=== PATIENT | female | born 1935 | race Caucasian/White ===

== ENCOUNTER → 2019-02-05 | Outpatient (CLI) | payer MEDICARE ==
--- NOTE | 2019-02-05 18:50 | ECHOF ---
Referral Reason:Cardia Murmur R07.9 MEASUREMENTS -------- HEIGHT: 142.2 cm WEIGHT: 56.2 kg BP: RVIDd: 2.3 cm (< 3.3) IVSd: 1.3 cm (0.6 - 1.1) LVIDd: 3.9 cm (3.9 - 5.3) LVPWd: 1.2 cm (0.6 - 1.1) IVSs: 1.4 cm LVIDs: 3.0 cm LVPWs: 1.3 cm LA Diam: 4.4 cm (2.7 - 3.8) LAESV Index (A-L): 39.58 ml/m Ao Diam: 2.5 cm (2.0 - 3.7) AV Cusp: 0.7 cm (1.5 - 2.6) MV EXCURSION: 17.202 mm (> 18.000) MV EF SLOPE: 41 mm/s (70 - 150) EPSS: 0.1 cm MV E Julio: 0.90 m/s MV DecT: 392 ms MV A Julio: 1.22 m/s MV E/A Ratio: 0.74 AV maxP.79 mmHg AV meanP.70 mmHg RAP: 5.00 mmHg RVSP: 38.41 mmHg FINDINGS -------- Sinus rhythm. This was a technically adequate study. The left ventricular size is normal. There is mild concentric left ventricular hypertrophy. Overa ll left ventricular systolic function is normal with, an EF between 55 - 60 %. Increased Lap Grade II Diastolic Dysfunction. The right ventricle is normal in size. LA is severely dilated >40 ml/m2 The right atrial size is normal. There is severe aortic stenosis present. Peak/mean gradient across the Aortic Valve is 79.79mmHg / 46.70mmHg. Mild mitral annular calcification present. There is trace to mild mitral regurgitation. Mild tricuspid regurgitation present. Right ventricular systolic pressure is normal at < 35 mmHg. There is no evidence of pulmonary hypertension. The pulmonic valve was not well visualized. There is no pulmonic regurgitation present. The aortic root size is normal. There is no pericardial effusion. CONCLUSIONS -------- 1. Sinus rhythm. 2. This was a technically adequate study. 3. The left ventricular size is normal. 4. There is mild concentric left ventricular hypertrophy. 5. Overall left ventricular systolic function is normal with, an EF between 55 - 60 %. 6. LA is severely dilated >40 ml/m2 7. There is severe aortic stenosis present. 8. Peak/mean gradient across the Aortic Valve is 79.79mmHg / 46.70mmHg. 9. Mild mitral annular calcification present. 10. There is trace to mild mitral regurgitation. 11. Mild tricuspid regurgitation present. 12. Right ventricular systolic pressure is normal at < 35 mmHg. 13. There is no pulmonic regurgitation present. 14. The aortic root size is normal. 15. There is no pericardial effusion. STATISTICAL METHODS TEACHER: Mirella Montez RDCS
== END | disposition home or self-care (01) ==
LOC: RADECHMAIN 15:48
PROVIDERS: ATTEND Family Medicine
DX: I08.3 Combined rheumatic disorders of mitral, aortic and tricuspid valves (principal)
CPT/HCPCS: 93306

== ENCOUNTER 2021-04-30 12:43 | Inpatient (IN) | payer MEDICARE ==
[2021-04-30] MEDS ORDERED: SODIUM CHLORIDE 0.9% 500 ML 500 ML IV ONE (12:49)
--- NOTE | 2021-04-30 13:34 | ED ---
General Adult HPI - General Chief complaint: Altered Mental Status Stated complaint: increased confusion Time Seen by Provider: 04/30/21 12:43 Source: patient, RN notes reviewed, old records reviewed Mode of arrival: EMS Limitations: altered mental status - History of Present Illness Initial comments: This is an 85-year-old female presents emergency department because of altered mental status. According to family states she was altered but today she was even more altered. Patient did stumble yesterday and twisted her ankle she also complains of right ankle pain. Family states his been no recent fever chills or cough is been no complaints of chest pain. Patient is not complaining of any abdominal pain there's been no nausea vomiting. Currently when I speak to the patient though she is somewhat confused she is not complaining of anything and does not know why she is here. Patient did not hit her head or neck when she fell yesterday. - Related Data Home Medications Medication Instructions Recorded Confirmed Acetaminophen [Tylenol] 650 mg PO Q4H PRN 04/30/21 04/30/21 Aspirin EC [Ecotrin Low Dose] 81 mg PO DAILY 04/30/21 04/30/21 Calcium Carbonate 500 mg PO DAILY 04/30/21 04/30/21 Cyanocobalamin (Vitamin B-12) 2,500 mcg PO DAILY 04/30/21 04/30/21 [Vitamin B-12] Furosemide [Lasix] 20 mg PO DAILY 04/30/21 04/30/21 Iron 28mg 28 mg PO DAILY 04/30/21 04/30/21 Metoprolol Tartrate [Lopressor] 12.5 mg PO BID 04/30/21 04/30/21 Potassium Chloride [Klor-Con 20] 20 meq PO W/LUNCH 04/30/21 04/30/21 Vit C/E/Zn/Coppr/Lutein/Zeaxan 1 cap PO BID 04/30/21 04/30/21 [Preservision Areds 2 Softgel] lisinopriL 10 mg PO DAILY 04/30/21 04/30/21 Allergies Allergy/AdvReac Type Severity Reaction Status Date / Time Penicillins Allergy Itching Verified 04/30/21 14:24 All Over Sulfa (Sulfonamide Allergy Itching Verified 04/30/21 14:24 Antibiotics) All Over Review of Systems ROS Statement: Those systems with pertinent positive or pertinent negative responses have been documented in the HPI. ROS Other: All systems not noted in ROS Statement are negative. Past Medical History Past Medical History: Unable to Obtain History of Any Multi-Drug Resistant Organisms: None Reported Past Surgical History: Unable to Obtain Past Psychological History: No Psychological Hx Reported Smoking Status: Never smoker General Exam - General Exam Comments Initial Comments: GENERAL: Patient is well-developed and well-nourished. Patient is nontoxic and well- hydrated and is in no acute distress. ENT: Neck is soft and supple. No significant lymphadenopathy is noted. Oropharynx is clear. Moist mucous membranes. Neck has full range of motion without eliciting any pain. EYES: The sclera were anicteric and conjunctiva were pink and moist. Extraocular movements were intact and pupils were equal round and reactive to light. Eyelids were unremarkable. PULMONARY: Unlabored respirations. Good breath sounds bilaterally. No audible rales rhonchi or wheezing was noted. CARDIOVASCULAR: There is a regular rate and rhythm without any murmurs gallops or rubs. ABDOMEN: Soft and nontender with normal bowel sounds. SKIN: Skin is clear with no lesions or rashes and otherwise unremarkable. NEUROLOGIC: Patient is alert and oriented 2. Cranial nerves II through XII are grossly intact. Motor and sensory are also intact. Normal speech, volume and content. Symmetrical smile. MUSCULOSKELETAL: Normal extremities with adequate strength and full range of motion. No lower extremity swelling or edema. No calf tenderness. LYMPHATICS: No significant lymphadenopathy is noted PSYCHIATRIC: Difficult to assess patient is altered. Limitations: altered mental status Course Vital Signs 04/30/21 12:45 Temperature 98.0 F Pulse Rate 94 Respiratory 18 Rate Blood Pressure 135/69 O2 Sat by Pulse 96 Oximetry Procedures - Orthopedic Splinting/Casting Injury #1 Side: right Lower Extremity Injury Location: short leg Lower Extremity Immobilizer: posterior splint Medical Decision Making - Medical Decision Making X-ray of the foot and ankle show no acute fracture however the patient is unable to bear any weight so I will a splint on the patient have orthoses the patient. CT of the brain shows no acute abnormality. Chest x-ray shows no acute abnormality. - Lab Data Result diagrams: 04/30/21 13:34 04/30/21 13:34 Lab Results 04/30/21 04/30/21 04/30/21 Range/Units 13:34 13:34 13:34 WBC 18.1 H (3.8-10.6) k/uL RBC 3.76 L (3.80-5.40) m/uL Hgb 11.2 L (11.4-16.0) gm/dL Hct 34.6 (34.0-46.0) % MCV 91.9 (80.0-100.0) fL MCH 29.8 (25.0-35.0) pg MCHC 32.4 (31.0-37.0) g/dL RDW 14.3 (11.5-15.5) % Plt Count 283 (150-450) k/uL MPV 8.2 Neutrophils % 88 % Lymphocytes % 4 % Monocytes % 7 % Eosinophils % 0 % Basophils % 0 % Neutrophils # 15.9 H (1.3-7.7) k/uL Lymphocytes # 0.7 L (1.0-4.8) k/uL Monocytes # 1.2 H (0-1.0) k/uL Eosinophils # 0.0 (0-0.7) k/uL Basophils # 0.0 (0-0.2) k/uL PT 9.8 (9.0-12.0) sec INR 0.9 (<1.2) APTT 23.2 (22.0-30.0) sec Sodium 140 (137-145) mmol/L Potassium 4.3 (3.5-5.1) mmol/L Chloride 108 H (98-107) mmol/L Carbon Dioxide 26 (22-30) mmol/L Anion Gap 6 mmol/L BUN 47 H (7-17) mg/dL Creatinine 1.09 H (0.52-1.04) mg/dL Est GFR (CKD-EPI)AfAm 54 (>60 ml/min/1.73 sqM) Est GFR (CKD-EPI)NonAf 47 (>60 ml/min/1.73 sqM) Glucose 122 H (74-99) mg/dL Calcium 9.5 (8.4-10.2) mg/dL Total Bilirubin 0.8 (0.2-1.3) mg/dL AST 105 H (14-36) U/L ALT 32 (4-34) U/L Alkaline Phosphatase 121 (38-126) U/L Troponin I (0.000-0.034) ng/mL Total Protein 7.0 (6.3-8.2) g/dL Albumin 4.1 (3.5-5.0) g/dL Urine Color Urine Appearance (Clear) Urine pH (5.0-8.0) Ur Specific Elmer (1.001-1.035) Urine Protein (Negative) Urine Glucose (UA) (Negative) Urine Ketones (Negative) Urine Blood (Negative) Urine Nitrite (Negative) Urine Bilirubin (Negative) Urine Urobilinogen (<2.0) mg/dL Ur Leukocyte Esterase (Negative) Urine RBC (0-5) /hpf Urine WBC (0-5) /hpf Ur Squamous Epith Cells (0-4) /hpf Urine Bacteria (None) /hpf Hyaline Casts (0-2) /lpf Urine Mucus (None) /hpf Urine Opiates Screen (NotDetected) Ur Oxycodone Screen (NotDetected) Urine Methadone Screen (NotDetected) Ur Propoxyphene Screen (NotDetected) Ur Barbiturates Screen (NotDetected) U Tricyclic Antidepress (NotDetected) Ur Phencyclidine Scrn (NotDetected) Ur Amphetamines Screen (NotDetected) U Methamphetamines Scrn (NotDetected) U Benzodiazepines Scrn (NotDetected) Urine Cocaine Screen (NotDetected) U Marijuana (THC) Screen (NotDetected) 04/30/21 04/30/21 Range/Units 13:34 16:37 WBC (3.8-10.6) k/uL RBC (3.80-5.40) m/uL Hgb (11.4-16.0) gm/dL Hct (34.0-46.0) % MCV (80.0-100.0) fL MCH (25.0-35.0) pg MCHC (31.0-37.0) g/dL RDW (11.5-15.5) % Plt Count (150-450) k/uL MPV Neutrophils % % Lymphocytes % % Monocytes % % Eosinophils % % Basophils % % Neutrophils # (1.3-7.7) k/uL Lymphocytes # (1.0-4.8) k/uL Monocytes # (0-1.0) k/uL Eosinophils # (0-0.7) k/uL Basophils # (0-0.2) k/uL PT (9.0-12.0) sec INR (<1.2) APTT (22.0-30.0) sec Sodium (137-145) mmol/L Potassium (3.5-5.1) mmol/L Chloride (98-107) mmol/L Carbon Dioxide (22-30) mmol/L Anion Gap mmol/L BUN (7-17) mg/dL Creatinine (0.52-1.04) mg/dL Est GFR (CKD-EPI)AfAm (>60 ml/min/1.73 sqM) Est GFR (CKD-EPI)NonAf (>60 ml/min/1.73 sqM) Glucose (74-99) mg/dL Calcium (8.4-10.2) mg/dL Total Bilirubin (0.2-1.3) mg/dL AST (14-36) U/L ALT (4-34) U/L Alkaline Phosphatase (38-126) U/L Troponin I 0.013 (0.000-0.034) ng/mL Total Protein (6.3-8.2) g/dL Albumin (3.5-5.0) g/dL Urine Color Yellow Urine Appearance Cloudy H (Clear) Urine pH 5.0 (5.0-8.0) Ur Specific Elmer 1.018 (1.001-1.035) Urine Protein Negative (Negative) Urine Glucose (UA) Negative (Negative) Urine Ketones Negative (Negative) Urine Blood Negative (Negative) Urine Nitrite Negative (Negative) Urine Bilirubin Negative (Negative) Urine Urobilinogen <2.0 (<2.0) mg/dL Ur Leukocyte Esterase Small H (Negative) Urine RBC <1 (0-5) /hpf Urine WBC 2 (0-5) /hpf Ur Squamous Epith Cells 2 (0-4) /hpf Urine Bacteria Many H (None) /hpf Hyaline Casts 4 H (0-2) /lpf Urine Mucus Rare H (None) /hpf Urine Opiates Screen Not Detected (NotDetected) Ur Oxycodone Screen Not Detected (NotDetected) Urine Methadone Screen Not Detected (NotDetected) Ur Propoxyphene Screen Not Detected (NotDetected) Ur Barbiturates Screen Not Detected (NotDetected) U Tricyclic Antidepress Not Detected (NotDetected) Ur Phencyclidine Scrn Not Detected (NotDetected) Ur Amphetamines Screen Not Detected (NotDetected) U Methamphetamines Scrn Not Detected (NotDetected) U Benzodiazepines Scrn Not Detected (NotDetected) Urine Cocaine Screen Not Detected (NotDetected) U Marijuana (THC) Screen Not Detected (NotDetected) Disposition Clinical Impression: Ankle sprain, Altered mental status, Urinary tract infection Referrals: Brian Rizzo DO [Primary Care Provider] - 1-2 days Time of Disposition: 17:33
[2021-04-30 14:05] LABS: Basophils % (A) 0 %; Eosinophils % (A) 0 %; HCT 34.6 % (34.0-46.0); HGB 11.2 gm/dL (11.4-16.0); Lymphocytes # (A) 0.7 k/uL (1.0-4.8); Lymphocytes % (A) 4 %; MCH 29.8 pg (25.0-35.0); MCHC 32.4 g/dL (31.0-37.0); MCV 91.9 fL (80.0-100.0); Mean Platelet Volume 8.2; Monocytes # (A) 1.2 k/uL (0-1.0); Monocytes % (A) 7 %; Neutrophils # (A) 15.9 k/uL (1.3-7.7); Neutrophils % (A) 88 %; Platelet Count 283 k/uL (150-450); RBC 3.76 m/uL (3.80-5.40); RDW 14.3 % (11.5-15.5); WBC 18.1 k/uL (3.8-10.6)
[2021-04-30 14:20] LABS: INR 0.9 (<1.2); Partial Thromboplastin Time 23.2 sec (22.0-30.0); Prothrombin Time 9.8 sec (9.0-12.0)
[2021-04-30 14:23] LABS: Albumin 4.1 g/dL (3.5-5.0); Calcium 9.5 mg/dL (8.4-10.2); Potassium 4.3 mmol/L (3.5-5.1); Total Bilirubin 0.8 mg/dL (0.2-1.3)
--- NOTE | 2021-04-30 15:15 | XR ---
EXAMINATION TYPE: XR chest 2V DATE OF EXAM: 04/30/2021 COMPARISON: NONE HISTORY: Altered mental status TECHNIQUE: Frontal and lateral views of the chest are obtained. FINDINGS: There is no focal air space opacity, pleural effusion, or pneumothorax seen. The cardiac silhouette size is within normal limits. Patient is status post TAVR procedure. Aorta is dense. The osseous structures are intact arthropathy noted in the right shoulder. Suspect there is retrocardiac density, possible hiatal hernia, indeterminate. IMPRESSION: Possible hiatal hernia retrocardiac region, correlate with patient's prior CT. Otherwise no acute abnormality evident.
--- NOTE | 2021-04-30 15:17 | XR ---
Right ankle and right foot HISTORY: Trauma and pain 3 views the right ankle and 3 views the right foot Soft tissue swelling is noted. There are ossific densities present distal to the medial malleolus and distal fibula which are thought likely to be well-corticated, correlate for point tenderness. Alignm ent is maintained. Bone mineralization is reduced. There are dense vascular calcifications present. P lantar calcaneus spur is noted. There is an enthesophyte at the insertion of the Achilles tendon. The digits are flexed. Degenerative changes, hallux valgus deformity present first metatarsophalangea l joint. IMPRESSION: Soft tissue swelling. Low bone mineralization could limit evaluation. Additional findings above. No acute fracture or dislocation is evident as described, correlate for point tenderness.
--- NOTE | 2021-04-30 16:10 | CT ---
EXAMINATION TYPE: CT brain wo con DATE OF EXAM: 04/30/2021 COMPARISON: None HISTORY: 85-year-old female Increased confusion TECHNIQUE: Examination was done in axial plane without intravenous contrast. Coronal and sagittal r econstructions performed. CT DLP: 1052.4 mGycm Automated exposure control for dose reduction was used. 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 Mild hyperostos is frontalis interna. Moderate patchy white matter hypodensities in both cerebral hemispheres. Mild generalized supratentor ial volume loss. Diffuse motion artifact limiting evaluation. Allowing for these artifacts, no evidence of acute intracranial hemorrhage, acute ischemic changes, mass, mass-effect, or extra-axial fluid collection. There is no effacement of cerebral sulci or basa l subarachnoid cisterns. There is no hydrocephalus. There is no midline shift. Stevens-white matter d istinction is preserved. IMPRESSION: Diffuse motion artifacts. 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 Mild atrophy and moderate burden of chronic small vessel ischemic disease. No definite acute intracranial abnorma lity seen allowing for the motion artifacts.
[2021-04-30 16:59] LABS: Appearance,Urine Cloudy (Clear); Bacteria,Urine Many /hpf; Bilirubin,Urine Negative (Negative); Blood,Urine Negative (Negative); Color,Urine Yellow; Glucose,Urine (UA) Negative (Negative); Hyaline Casts,Urine 4 /lpf (0-2); Ketones,Urine Negative (Negative); Leukocyte Esterase,Urine Small (Negative); Mucus,Urine Rare /hpf; Nitrite,Urine Negative (Negative); Protein,Urine Negative (Negative); RBC,Urine <1 /hpf (0-5); Specific Gravity,Urine 1.018 (1.001-1.035); Squamous Epithelial Cell,Urine 2 /hpf (0-4); Urobilinogen,Urine <2.0 mg/dL (<2.0); WBC,Urine 2 /hpf (0-5)
[2021-04-30] MEDS ORDERED: cefTRIAXone IN SWFI 1,000 MG/10 ML SYRINGE IVP STA (17:05)
[2021-04-30 17:18] LABS: Amphetamine Screen,Urine Not Detected (NotDetected); Barbiturate Screen,Urine Not Detected (NotDetected); Benzodiazepines Screen,Urine Not Detected (NotDetected); Cocaine Screen,Urine Not Detected (NotDetected); Methadone Screen, Urine Not Detected (NotDetected); Opiate Screen,Urine Not Detected (NotDetected); Oxycodone Screen, Urine Not Detected (NotDetected); Phencyclidine Screen,Urine Not Detected (NotDetected); Tricyclic Antidepressant,Urine Not Detected (NotDetected); Urn Cannabinoid Scrn Not Detected (NotDetected)
[2021-04-30] MEDS ORDERED: SODIUM CHLORIDE 0.9% 1,000 ML IV ONE (17:36)
--- NOTE | 2021-04-30 18:07 | XR ---
EXAMINATION TYPE: XR tibia fibula RT DATE OF EXAM: 04/30/2021 COMPARISON: NONE HISTORY: Pain TECHNIQUE: 3 views FINDINGS: A single fracture nor dislocation. There is osteopenia. There are some vascular calcificati on. Knee joint and ankle joint appear intact. IMPRESSION: No acute abnormality of the right tibia and fibula. No displaced fracture seen. Charla ramos
--- NOTE | 2021-05-01 09:00 | P.CNOR ---
History of Present Illness - [facility] Consult date: 05/01/21 Consult reason: other (Right ankle pain) History of present illness: Patient is an 85-year-old female who was brought to [facility] yesterday with regards to increase in confusion/altered mental status. Patient was apparently brought in by family and most of the history was provided by them. Patient was complaining of right ankle pain once in the emergency room, x-rays were done. Orthopedic team was consulted with regards to the ankle discomfort. 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 Patient remains quite confused, she answers most my questions regarding the ankle pain adequately but is unable to provide a timeline of when an injury happened. I discussed with patient that I would reach up to the family regarding this. She denies any significant knee pain, hip pain on the right side. She denies any discomfort of the left lower extremity. She denies any pain in the bilateral upper extremities. It was noted in the ER note the patient might have twisted her ankle a few days prior. Patient has no other orthopedic complaints at this time. Review of Systems Constitutional: Reports as per [facility] Past Medical History Past Medical History: Unable to Obtain History of Any Multi-Drug Resistant Organisms: None Reported Past Surgical History: Unable to Obtain Past Psychological History: No Psychological Hx Reported Smoking Status: Never smoker Medications and Allergies Home Medications Medication Instructions Recorded Confirmed Type Acetaminophen [Tylenol] 650 mg PO Q4H PRN 04/30/21 04/30/21 History Aspirin EC [Ecotrin Low Dose] 81 mg PO DAILY 04/30/21 04/30/21 History Calcium Carbonate 500 mg PO DAILY 04/30/21 04/30/21 History Cyanocobalamin (Vitamin B-12) 2,500 mcg PO DAILY 04/30/21 04/30/21 History [Vitamin B-12] Furosemide [Lasix] 20 mg PO DAILY 04/30/21 04/30/21 History Iron 28mg 28 mg PO DAILY 04/30/21 04/30/21 History Metoprolol Tartrate [Lopressor] 12.5 mg PO BID 04/30/21 04/30/21 History Potassium Chloride [Klor-Con 20] 20 meq PO W/LUNCH 04/30/21 04/30/21 History Vit C/E/Zn/Coppr/Lutein/Zeaxan 1 cap PO BID 04/30/21 04/30/21 History [Preservision Areds 2 Softgel] lisinopriL 10 mg PO DAILY 04/30/21 04/30/21 History Allergies Allergy/AdvReac Type Severity Reaction Status Date / Time Penicillins Allergy Itching Verified 04/30/21 14:24 All Over Sulfa (Sulfonamide Allergy Itching Verified 04/30/21 14:24 Antibiotics) All Over Physical Examination Right lower extremity: No obvious skin lesions or sores are visualized throughout extremity. There is no areas of erythema present. There is obvious swelling along the lateral ankle and lateral malleolus. Patient demonstrates no tenderness with palpation of the upper thigh, knee, lower tibia/fibula. She is obvious tenderness over the lateral malleolus along those ankle ligament distributions. No tenderness with palpation along the medial malleolus. She is nontender throughout the hindfoot, midfoot and forefoot. Logroll maneuver reproduces no pain in the groin, passive motion of the knee including flexion and extension demonstrate no pain. Patient has had difficulty with plantar and dorsiflexion, this is reproduced discomfort. EHL and FHL are both intact and cause minimal discomfort Calf is soft, no tenderness with palpation Sensory exam light touch is intact throughout the extremity, dorsalis pedis pulses 2+ Results - Labs Labs: Abnormal Lab Results - Last 24 Hours (Table) 04/30/21 04/30/21 04/30/21 Range/Units 13:34 13:34 16:37 WBC 18.1 H (3.8-10.6) k/uL RBC 3.76 L (3.80-5.40) m/uL Hgb 11.2 L (11.4-16.0) gm/dL Neutrophils # 15.9 H (1.3-7.7) k/uL Lymphocytes # 0.7 L (1.0-4.8) k/uL Monocytes # 1.2 H (0-1.0) k/uL Chloride 108 H (98-107) mmol/L BUN 47 H (7-17) mg/dL Creatinine 1.09 H (0.52-1.04) mg/dL Glucose 122 H (74-99) mg/dL AST 105 H (14-36) U/L Urine Appearance Cloudy H (Clear) Ur Leukocyte Esterase Small H (Negative) Urine Bacteria Many H (None) /hpf Hyaline Casts 4 H (0-2) /lpf Urine Mucus Rare H (None) /hpf H & H 04/30/21 Range/Units 13:34 Hgb 11.2 L (11.4-16.0) gm/dL Hct 34.6 (34.0-46.0) % Coagulation 04/30/21 Range/Units 13:34 INR 0.9 (<1.2) Result Diagrams: 04/30/21 13:34 04/30/21 13:34 - Diagnostic results Ankle/Foot x-ray: report reviewed, image reviewed (AP and lateral views of the right tibia/fibula, ankle and foot were reviewed along with reports. No obvious fractures or dislocations are present. Osteopenia present throughout the right lower extremity.) Assessment and Plan Assessment: Right ankle pain Right lateral ankle sprain Multiple medical comorbidities Plan: I was able to discuss the case, including the physical exam findings and imaging studies my attending Dr. Fowler. No orthopedic surgical intervention recommended at this time. Posterior splint was removed today at bedside for exam of the ankle. I would recommend discontinue this at this time. A prescription was placed for a lace up ankle brace, this was on a written prescription and placed in the chart for case management to contact medical supply. Discussed with both the patient and nurse once patient is fitted with brace she may weight-bear as tolerated, recommend good supportive athletic shoe. We'll attempt to contact patient's family will keep him in her status Ice and elevate the lower extremely Pain control, [id number] Tylenol or anti-inflammatories Recommended PT/OT evaluation Recommend follow-up at [facility] in 2-3 weeks for recheck, please contact our service with any further questions Time with Patient: Less than 30
[2021-05-01] MEDS ORDERED: FUROSEMIDE 20 MG TAB PO SCH (09:54)
[2021-05-01] MEDS: METOPROLOL TARTRATE 12.5 MG TAB PO SCH ×2 (11:06→21:14)
[2021-05-01] MEDS ORDERED: SODIUM CHLORIDE 0.9% 1,000 ML IV SCH (11:15)
[2021-05-01] MEDS: POTASSIUM CHLORIDE ER 20 MEQ TAB.ER PO SCH (11:49)
[2021-05-01 12:04] LABS: Basophils % (A) 0 %; Eosinophils % (A) 0 %; HCT 30.9 % (34.0-46.0); HGB 10.4 gm/dL (11.4-16.0); Lymphocytes # (A) 0.7 k/uL (1.0-4.8); Lymphocytes % (A) 5 %; MCH 31.5 pg (25.0-35.0); MCHC 33.7 g/dL (31.0-37.0); MCV 93.6 fL (80.0-100.0); Mean Platelet Volume 8.3; Monocytes # (A) 0.8 k/uL (0-1.0); Monocytes % (A) 6 %; Neutrophils # (A) 11.4 k/uL (1.3-7.7); Neutrophils % (A) 87 %; Platelet Count 253 k/uL (150-450); RBC 3.31 m/uL (3.80-5.40); RDW 14.4 % (11.5-15.5); WBC 13.2 k/uL (3.8-10.6)
[2021-05-01 12:24] LABS: African American GFR (CKD) 66 (>60 ml/min/1.73 sqM); Anion Gap 6 mmol/L; Blood Urea Nitrogen 34 mg/dL (7-17); Calcium 8.7 mg/dL (8.4-10.2); Carbon Dioxide 24 mmol/L (22-30); Chloride 110 mmol/L (98-107); Glucose 99 mg/dL (74-99); Non-African American GFR(CKD) 57 (>60 ml/min/1.73 sqM); Potassium 4.2 mmol/L (3.5-5.1); Sodium 140 mmol/L (137-145)
[2021-05-01] MEDS ORDERED: QUEtiapine 25 MG TAB PO PRN (12:34)
[2021-05-01] MEDS ORDERED: ACETAMINOPHEN TAB 325 MG TAB PO PRN (12:39)
--- NOTE | 2021-05-01 12:39 | P.HPIM ---
History of Present Illness 85-year-old female was brought in by family members because of altered mental status. Patient has been falling for last few days, and yesterday patient was found at home by the daughter on the floor and was confused. The patient is found have leukocytosis no fever U Ms. mildly abnormal but no WBC in the urine does have some leukocyte esterase and bacteria. Patient was started on Rocephin and was subsequently admitted with concerns of urinary tract infection. Patient is now getting back to her usual self the patient received IV fluids patient is significantly dehydrated clinically as well as elevated creatinine of 1.09. Patient appears to have advanced dementia, sometimes cannot recognize her daughter. His daughter is at the bedside patient in the evenings does have episodes of hallucinations and also wanders around the house. She's had MRIs in the past as a part of workup for a dementia and the patient was told that she has significantly shrunken brain. REVIEW OF SYSTEMS: Unable to obtain most of the history was obtained from her daughter although patient denied any dysuria, increased urinary frequency or urgency PHYSICAL EXAMINATION: GENERAL: Patient was sleeping arousable and oriented 2 not in any acute distress. Well developed, well nourished. HEENT: Pupils are round and equally reacting to light. EOMI. No scleral icterus. No conjunctival pallor. Normocephalic, atraumatic. No pharyngeal erythema. No thyromegaly. CARDIOVASCULAR: S1 and S2 present. No murmurs, rubs, or gallops. PULMONARY: Chest is clear to auscultation, no wheezing or crackles. ABDOMEN: Soft, nontender, nondistended, normoactive bowel sounds. No palpable organomegaly. MUSCULOSKELETAL: No joint swelling or deformity. EXTREMITIES: No cyanosis, clubbing, or pedal edema. NEUROLOGICAL: Definitely bit confused but does have significant memory problems no other focal deficits were appreciated SKIN: No rashes. Assessment and plan -Altered mental status: Secondary to metabolic encephalopathy from dehydration patient will be continued on IV fluids was switched to half-normal saline because of hyperchloremia. -Possible asymptomatic bacteriuria will not require any antibiotics as dehydration explains her altered mental status I do not believe patient has UTI and urine analysis is not significant for UTI antibiotics will be discontinued at this time -Possible advanced dementia once her mental status improves and metabolic encephalopathy improves we'll obtain mini cognitive testing by speech therapy -Episodes of confusion and hallucinations secondary to advancing dementia patient will be started on as needed Seroquel and will be discharged on same -Right ankle sprain: Orthotic surgery evaluated the patient in the recommending a place DVT prophylaxis: Low-dose Lovenox Past Medical History Past Medical History: Eye Disorder, Hypertension, Memory Impairment Additional Past Medical History / Comment(s): 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 Past Anesthesia/Blood Transfusion Reactions: No Reported Reaction Smoking Status: Never smoker - Past Family History Father Family Medical History: CVA/TIA, Hypertension Mother Family Medical History: Dementia, Hypertension, Liver Disease, Vascular Disorder Additional Family Medical History / Comment(s): Hepatits from blood transfusion, abdominal aneurysm, gout, cholecystectomy Medications and Allergies Home Medications Medication Instructions Recorded Confirmed Type Acetaminophen [Tylenol] 650 mg PO Q4H PRN 04/30/21 04/30/21 History Aspirin EC [Ecotrin Low Dose] 81 mg PO DAILY 04/30/21 04/30/21 History Calcium Carbonate 500 mg PO DAILY 04/30/21 04/30/21 History Cyanocobalamin (Vitamin B-12) 2,500 mcg PO DAILY 04/30/21 04/30/21 History [Vitamin B-12] Furosemide [Lasix] 20 mg PO DAILY 04/30/21 04/30/21 History Iron 28mg 28 mg PO DAILY 04/30/21 04/30/21 History Metoprolol Tartrate [Lopressor] 12.5 mg PO BID 04/30/21 04/30/21 History Potassium Chloride [Klor-Con 20] 20 meq PO W/LUNCH 04/30/21 04/30/21 History Vit C/E/Zn/Coppr/Lutein/Zeaxan 1 cap PO BID 04/30/21 04/30/21 History [Preservision Areds 2 Softgel] lisinopriL 10 mg PO DAILY 04/30/21 04/30/21 History Allergies Allergy/AdvReac Type Severity Reaction Status Date / Time Penicillins Allergy Itching Verified 04/30/21 14:24 All Over Sulfa (Sulfonamide Allergy Itching Verified 04/30/21 14:24 Antibiotics) All Over Physical Exam Vitals: Vital Signs Temp Pulse Pulse Resp BP BP Pulse Ox 05/01/21 09:12 93 L 05/01/21 07:57 99.5 F 108 H 20 142/77 93 L 05/01/21 02:00 89 147/75 92 L 04/30/21 23:00 90 18 132/80 97 04/30/21 19:30 90 18 128/74 96 04/30/21 17:30 90 18 140/70 96 04/30/21 12:45 98.0 F 94 18 135/69 96 Intake and Output 04/30/21 05/01/21 05/01/21 22:59 06:59 14:59 Other: Voiding Method Incontinent Weight 132 kg Results CBC & Chem 7: 05/01/21 10:51 05/01/21 10:51 Labs: Abnormal Lab Results - Last 24 Hours (Table) 04/30/21 04/30/21 04/30/21 Range/Units 13:34 13:34 16:37 WBC 18.1 H (3.8-10.6) k/uL RBC 3.76 L (3.80-5.40) m/uL Hgb 11.2 L (11.4-16.0) gm/dL Hct (34.0-46.0) % Neutrophils # 15.9 H (1.3-7.7) k/uL Lymphocytes # 0.7 L (1.0-4.8) k/uL Monocytes # 1.2 H (0-1.0) k/uL Chloride 108 H (98-107) mmol/L BUN 47 H (7-17) mg/dL Creatinine 1.09 H (0.52-1.04) mg/dL Glucose 122 H (74-99) mg/dL AST 105 H (14-36) U/L Urine Appearance Cloudy H (Clear) Ur Leukocyte Esterase Small H (Negative) Urine Bacteria Many H (None) /hpf Hyaline Casts 4 H (0-2) /lpf Urine Mucus Rare H (None) /hpf 05/01/21 05/01/21 Range/Units 10:51 10:51 WBC 13.2 H (3.8-10.6) k/uL RBC 3.31 L (3.80-5.40) m/uL Hgb 10.4 L (11.4-16.0) gm/dL Hct 30.9 L (34.0-46.0) % Neutrophils # 11.4 H (1.3-7.7) k/uL Lymphocytes # 0.7 L (1.0-4.8) k/uL Monocytes # (0-1.0) k/uL Chloride 110 H (98-107) mmol/L BUN 34 H (7-17) mg/dL Creatinine (0.52-1.04) mg/dL Glucose (74-99) mg/dL AST (14-36) U/L Urine Appearance (Clear) Ur Leukocyte Esterase (Negative) Urine Bacteria (None) /hpf Hyaline Casts (0-2) /lpf Urine Mucus (None) /hpf Thrombosis Risk Factor Assmnt - Choose All That Apply Any of the Below Risk Factors Present?: Yes Each Factor Represents 1 point: Obesity (BMI >25) Other Risk Factors: Yes Each Risk Factor Represents 3 Points: Age 75 years or older Other congenital or acquired thrombophilia - If yes, enter type in comment: No Thrombosis Risk Factor Assessment Total Risk Factor Score: 4 Thrombosis Risk Factor Assessment Level: Moderate Risk
[2021-05-01] MEDS: SODIUM CHLORIDE 0.45% 1,000 ML IV SCH (12:59)
[2021-05-01] MEDS: VIT A,C & E-LUTEIN-MINERALS 1 EACH TAB PO SCH (21:14)
[2021-05-02] MEDS: SODIUM CHLORIDE 0.45% 1,000 ML IV SCH ×2 (07:41→15:34)
[2021-05-02] MEDS: ENOXAPARIN 40 MG/0.4 ML SYRINGE SQ SCH (07:41)
[2021-05-02] MEDS: CALCIUM CARBONATE 500 MG CHEWABLE PO SCH (07:42)
[2021-05-02] MEDS: METOPROLOL TARTRATE 12.5 MG TAB PO SCH ×2 (07:42→20:50)
[2021-05-02] MEDS: VIT A,C & E-LUTEIN-MINERALS 1 EACH TAB PO SCH ×2 (07:42→22:02)
[2021-05-02] MEDS: CYANOCOBALAMIN 500 MCG TAB PO SCH (07:42)
[2021-05-02] MEDS: FERROUS SULFATE 325 MG TAB PO SCH (07:42)
[2021-05-02] MEDS: ASPIRIN 81 MG PO SCH (07:42)
--- NOTE | 2021-05-02 10:51 | P.PN ---
Subjective Progress Note Date: 05/02/21 Principal diagnosis: Altered mental status, right ankle sprain Patient evaluated at bedside, she still remains in the ER is old. Patient's family was present at bedside. She states she is doing well or better today. She still has discomfort in the right lower extremity. The lace up ankle brace was not fitted yesterday, did discuss with nursing to contact case management to work on this for today. Objective - Vital Signs Vital signs: Vital Signs Temp 98.3 F 05/02/21 10:05 Pulse 78 05/02/21 10:05 Resp 18 05/02/21 10:05 BP 110/59 05/02/21 10:05 Pulse Ox 96 05/02/21 10:05 Intake & Output 05/01/21 05/02/21 05/02/21 18:59 06:59 18:59 Intake Total 600 30 Output Total 700 895 Balance -100 -865 Weight 132 kg Intake: Intake, IV Titration 600 Amount Sodium Chloride 0.45% 1, 600 000 ml @ 75 mls/hr IV . [id number] [facility] Rx#:[id number] Oral 30 Output: Urine 700 550 Straight 700 Post Void Residual 345 Other: Voiding Method Incontinent Indwelling Catheter - Exam Right lower extremity: No obvious skin lesions or sores are visualized throughout extremity. There is no areas of erythema present. There is obvious swelling along the lateral ankle and lateral malleolus. Patient demonstrates no tenderness with palpation of the upper thigh, knee, lower tibia/fibula. She is obvious tenderness over the lateral malleolus along those ankle ligament distributions. No tenderness with palpation along the medial malleolus. She is nontender throughout the hindfoot, midfoot and forefoot. Logroll maneuver reproduces no pain in the groin, passive motion of the knee including flexion and extension demonstrate no pain. Patient has had difficulty with plantar and dorsiflexion, this is reproduced discomfort. EHL and FHL are both intact and cause minimal discomfort Calf is soft, no tenderness with palpation Sensory exam light touch is intact throughout the extremity, dorsalis pedis pulses 2+ - Labs CBC & Chem 7: 05/01/21 10:51 05/01/21 10:51 Labs: Abnormal Lab Results - Last 24 Hours (Table) 05/01/21 05/01/21 Range/Units 10:51 10:51 WBC 13.2 H (3.8-10.6) k/uL RBC 3.31 L (3.80-5.40) m/uL Hgb 10.4 L (11.4-16.0) gm/dL Hct 30.9 L (34.0-46.0) % Neutrophils # 11.4 H (1.3-7.7) k/uL Lymphocytes # 0.7 L (1.0-4.8) k/uL Chloride 110 H (98-107) mmol/L BUN 34 H (7-17) mg/dL Assessment and Plan Assessment: Right ankle pain Right lateral ankle sprain Multiple medical comorbidities Plan: Working on fitting patient for lace up ankle brace. Recommend use of a good supportive shoe, Ice and elevate the lower extremely Pain control, [id number] Tylenol or anti-inflammatories Recommended PT/OT evaluation [facility] 2-3 weeks for recheck, please contact our service with any further questions Time with Patient: Less than 30
[2021-05-02 11:17] LABS: Amorphous Sediment,Urine Occasional /hpf; Appearance,Urine Cloudy (Clear); Bacteria,Urine Rare /hpf; Bilirubin,Urine Negative (Negative); Blood,Urine Negative (Negative); Color,Urine Yellow; Glucose,Urine (UA) Negative (Negative); Ketones,Urine 1+ (Negative); Leukocyte Esterase,Urine Large (Negative); Mucus,Urine Few /hpf; Nitrite,Urine Negative (Negative); Protein,Urine 1+ (Negative); RBC,Urine 16 /hpf (0-5); Specific Gravity,Urine 1.026 (1.001-1.035); Squamous Epithelial Cell,Urine 2 /hpf (0-4); Uric Acid Crystals,Urine Rare /hpf; Urobilinogen,Urine <2.0 mg/dL (<2.0); WBC,Urine 28 /hpf (0-5)
[2021-05-02 11:54] LABS: Basophils # (A) 0.04 X 10*3/uL (0.00-0.10); Basophils % (A) 0.3 %; Eosinophils # (A) 0 X 10*3/uL (0.04-0.35); Eosinophils % (A) 0 %; HCT 28.1 % (37.2-46.3); HGB 8.9 g/dL (12.0-15.0); Immature Grans, Automated 1.1 %; Lymphocytes # (A) 0.75 X 10*3/uL (0.90-5.00); Lymphocytes % (A) 4.8 %; MCH 29.3 pg (27.0-32.0); MCHC 31.7 g/dL (32.0-37.0); MCV 92.4 fL (80.0-97.0); Mean Platelet Volume 11.9 fL (9.5-12.2); Monocytes # (A) 1.26 X 10*3/uL (0.20-1.00); NRBC Per 100 WBC 0 /100 WBCS (0.0-0.0); Neutrophils # (A) 13.51 X 10*3/uL (1.80-7.70); Neutrophils % (A) 85.8 %; Platelet Count 242 X 10*3/uL (140-440); RBC 3.04 X 10*6/uL (4.10-5.20); RDW 15.1 % (11.5-14.5); WBC 15.74 X 10*3/uL (4.50-10.00)
[2021-05-02] MEDS: POTASSIUM CHLORIDE ER 20 MEQ TAB.ER PO SCH (11:55)
[2021-05-02 12:05] LABS: African American GFR (CKD) 78.5 (60.0-200.0); Anion Gap 14.6 mmol/L (10.00-18.00); BUN/Creat Ratio 35.88 Ratio (12.00-20.00); Blood Urea Nitrogen 28.7 mg/dL (9.0-27.0); Calcium 8.9 mg/dL (8.7-10.3); Carbon Dioxide 19.4 mmol/L (20.0-27.5); Non-African American GFR(CKD) 67.7 (60.0-200.0); Potassium 3.8 mmol/L (3.5-5.5)
--- NOTE | 2021-05-02 14:36 | P.DS ---
Providers Date of admission: 04/30/21 17:36 Attending physician: Malathi Torres Consults: 04/30/21 17:36 Consult Physician Urgent Consulting Provider: Balaji Floyd Consult Reason/Comments: Ankle sprain Do you want consulting provider notified?: Yes Primary care physician: Brian Rizzo [facility] Course: Final Diagnosis Altered mental status, multifactorial, component of metabolic encephalopathy from dehydration, as well as possible vascular dementia which patient is being worked up for outpatient. Rule out asymptomatic bacteriuria, patient urinalysis suggestive of infection, on antibiotics Frequent falls with right ankle sprain, evaluated by orthopedics, brace has been ordered Leukocytosis secondary to above Possible advanced dementia pending mini cog testing with speech therapy Episodes of confusion and hallucinations secondary to advanding dementia probably vascular, patient can be discharged on as needed seroquel Discharge Disposition Patient stable for discharge to rehab with de jesus catheter in place and antibiotics, Can do voiding trial in 2 days. Pending ankle brace which has been ordered Hospital Course This is an 85 year old female who was brought in by family members who are patients primary caregiver for altered mental status. Patient does follow with neurology outpatient and has been an ongoing workup for a dementia diagnosis. She is alert to self at baseline. Patient has had 3 falls the last couple days which resulted the patient being on the floor and confused returned from work. On admission white count showed 18.1, hemoglobin 1.2 albumin 37, creatinine 1.09. Urinalysis suggestive of infection on repeat, cultures are currently pending. Patient was treated inpatient with IV Rocephin and can discharge on 3 more days of oral antibiotics. She has remained afebrile, no urinary symptoms, denies dysuria, urgency or frequency however patient is a poor historian. She is also found to have urinary retention this admission and has an indwelling catheter which has not been placed. She can complete a voiding trial in 2 days at rehab, will discharge with catheter in place with follow-up to urology as needed. Patient was evaluated by orthopedics who fit her right ankle for a brace. 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 Patient lives with her daughter however she is alone for a period of about 5 hours in the morning. PT/OT evaluated the patient and is recommending subacute rehab which daughter is agreeable for discharge. There is concern for acute UTI however patient has had no symptoms but she is a poor historian. She had a de jesus catheter placed this morning as patient was retaining urine, she can discharge with the catheter and do a voiding trial at rehab. She today denies chest pain, chest pressure, cough, shortness of breath. Bowels are moving. Has right ankle pain unable to give a number however winces with range of motion. Lungs are clear, s1 s2 auscultated with murmur noted. Abdomen is soft and nontender, focal neurological exam is negative with the exception of mentation, alert x 1 but pleasant. She is tolerating diet well. Patient will have repeat labs in 2 days. Follow up with urology, orthopedics, and primary care. Also, follow up with patients own neurologist on discharge who is out of [facility]. Vitals today, patient is afebrile, heart rate 78, blood pressure 110/59, 96% room air. Labs today show WBC of 15, hgb 8.9 normocytic, which is probably dilutional as patient has been receiving IV fluids. Pleas see medication reconciliation for a list of current medications. Thank you for allowing us to participate in the care of this patient. Patient Condition at Discharge: Stable Plan - Discharge Summary Discharge Rx Participant: No New Discharge Prescriptions: New QUEtiapine [SEROquel] 12.5 mg PO HS PRN #3 tab PRN Reason: Agitation Cefuroxime Axetil [Ceftin] 500 mg PO BID 3 Days #6 tab Continue Vit C/E/Zn/Coppr/Lutein/Zeaxan [Preservision Areds 2 Softgel] 1 cap PO BID Iron 28mg 28 mg PO DAILY Calcium Carbonate 500 mg PO DAILY Furosemide [Lasix] 20 mg PO DAILY Cyanocobalamin (Vitamin B-12) [Vitamin B-12] 2,500 mcg PO DAILY Acetaminophen [Tylenol] 650 mg PO Q4H PRN PRN Reason: Fever And/ Or Pain Potassium Chloride [Klor-Con 20] 20 meq PO W/LUNCH lisinopriL 10 mg PO DAILY Metoprolol Tartrate [Lopressor] 12.5 mg PO BID Aspirin EC [Ecotrin Low Dose] 81 mg PO DAILY Discharge Medication List Acetaminophen [Tylenol] 650 mg PO Q4H PRN 04/30/21 [History] Aspirin EC [Ecotrin Low Dose] 81 mg PO DAILY 04/30/21 [History] Calcium Carbonate 500 mg PO DAILY 04/30/21 [History] Cyanocobalamin (Vitamin B-12) [Vitamin B-12] 2,500 mcg PO DAILY 04/30/21 [History] Furosemide [Lasix] 20 mg PO DAILY 04/30/21 [History] Iron 28mg 28 mg PO DAILY 04/30/21 [History] Metoprolol Tartrate [Lopressor] 12.5 mg PO BID 04/30/21 [History] Potassium Chloride [Klor-Con 20] 20 meq PO W/LUNCH 04/30/21 [History] Vit C/E/Zn/Coppr/Lutein/Zeaxan [Preservision Areds 2 Softgel] 1 cap PO BID 04/30/21 [History] lisinopriL 10 mg PO DAILY 04/30/21 [History] Cefuroxime Axetil [Ceftin] 500 mg PO BID 3 Days #6 tab 05/02/21 [Rx] QUEtiapine [SEROquel] 12.5 mg PO HS PRN #3 tab 05/02/21 [Rx] Follow up Appointment(s)/Referral(s): Balaji Floyd DO [Doctor of Osteopathic Medicine] - 2 Weeks Brian Rizzo DO [Primary Care Provider] - 1-2 days Pineda Al MD [STAFF PHYSICIAN] - 1 Week Sara Milian [NON-STAFF] - (Please call Keerthi is you have questions about your ankle brace.) Ambulatory/Diagnostic Orders: Complete Blood Count w/diff [LAB.AMB] Time Frame: 2 Days, Location: None Selected Activity/Diet/Wound Care/Special Instructions: Orthopedic discharge instructions: 1. Utilize lace up ankle brace 2. Recommend good supportive shoe 3. Ice and elevate off 4. [facility] at [facility] 2 weeks Patient can discharge with de jesus catheter and complete voiding trial in 2 days, follow up with urology outpatient. Patient will need ankle brace from [facility] Discharge Disposition: TRANSFER TO SNF/ECF
[2021-05-03 01:54] VITALS: TEMP 98.4
[2021-05-03] MEDS: FERROUS SULFATE 325 MG TAB PO SCH (07:05)
[2021-05-03] MEDS: METOPROLOL TARTRATE 12.5 MG TAB PO SCH (07:06)
[2021-05-03] MEDS: ASPIRIN 81 MG PO SCH (07:06)
[2021-05-03] MEDS: ENOXAPARIN 40 MG/0.4 ML SYRINGE SQ SCH (07:06)
[2021-05-03] MEDS: CYANOCOBALAMIN 500 MCG TAB PO SCH (07:06)
[2021-05-03] MEDS: CALCIUM CARBONATE 500 MG CHEWABLE PO SCH (07:06)
[2021-05-03] MEDS: VIT A,C & E-LUTEIN-MINERALS 1 EACH TAB PO SCH (07:07)
[2021-05-03 07:37] VITALS: BP 132/77; PULSE 86; RESP 17
[2021-05-03 08:57] LABS: Basophils # (A) 0.05 X 10*3/uL (0.00-0.10); Basophils % (A) 0.5 %; Eosinophils # (A) 0.04 X 10*3/uL (0.04-0.35); Eosinophils % (A) 0.4 %; HCT 28.1 % (37.2-46.3); HGB 8.8 g/dL (12.0-15.0); Immature Grans, Automated 0.4 %; Lymphocytes # (A) 1.09 X 10*3/uL (0.90-5.00); Lymphocytes % (A) 10.7 %; MCH 29.3 pg (27.0-32.0); MCHC 31.3 g/dL (32.0-37.0); MCV 93.7 fL (80.0-97.0); Mean Platelet Volume 11.4 fL (9.5-12.2); Monocytes # (A) 0.93 X 10*3/uL (0.20-1.00); Monocytes % (A) 9.1 %; NRBC Per 100 WBC 0 /100 WBCS (0.0-0.0); Neutrophils # (A) 8.05 X 10*3/uL (1.80-7.70); Neutrophils % (A) 78.9 %; Platelet Count 259 X 10*3/uL (140-440); RDW 15.1 % (11.5-14.5)
[2021-05-03 09:12] LABS: African American GFR (CKD) 69.2 (60.0-200.0); Anion Gap 11.2 mmol/L (10.00-18.00); BUN/Creat Ratio 30.63 Ratio (12.00-20.00); Blood Urea Nitrogen 27.2 mg/dL (9.0-27.0); Calcium 8.8 mg/dL (8.7-10.3); Carbon Dioxide 21.7 mmol/L (20.0-27.5); Non-African American GFR(CKD) 59.7 (60.0-200.0); Potassium 4.1 mmol/L (3.5-5.5)
[2021-05-03] MEDS: SODIUM CHLORIDE 0.45% 1,000 ML IV SCH (11:26)
[2021-05-03] MEDS: POTASSIUM CHLORIDE ER 20 MEQ TAB.ER PO SCH (11:59)
--- NOTE | 2021-05-03 14:32 | P.DS ---
Providers Date of admission: 04/30/21 17:36 Attending physician: Malathi Torres Consults: 04/30/21 17:36 Consult Physician Urgent Consulting Provider: Balaji Floyd Consult Reason/Comments: Ankle sprain Do you want consulting provider notified?: Yes Primary care physician: Brian Rizzo [facility] Course: Final Diagnosis Altered mental status, multifactorial, component of metabolic encephalopathy from dehydration, as well as possible vascular dementia which patient is being worked up for outpatient. Rule out asymptomatic bacteriuria, patient urinalysis suggestive of infection, on antibiotics Frequent falls with right ankle sprain, evaluated by orthopedics, brace has been ordered Leukocytosis secondary to above Possible advanced dementia pending mini cog testing with speech therapy Episodes of confusion and hallucinations secondary to advanding dementia probably vascular, patient can be discharged on as needed seroquel Discharge Disposition Patient stable for discharge to rehab with de jesus catheter in place and antibiotics, Can do voiding trial in 2 days. Pending ankle brace which has been ordered Hospital Course This is an 85 year old female who was brought in by family members who are patients primary caregiver for altered mental status. Patient does follow with neurology outpatient and has been an ongoing workup for a dementia diagnosis. She is alert to self at baseline. Patient has had 3 falls the last couple days which resulted the patient being on the floor and confused returned from work. On admission white count showed 18.1, hemoglobin 1.2 albumin 37, creatinine 1.09. Urinalysis suggestive of infection on repeat, cultures are currently pending. Patient was treated inpatient with IV Rocephin and can discharge on 3 more days of oral antibiotics. She has remained afebrile, no urinary symptoms, denies dysuria, urgency or frequency however patient is a poor historian. She is also found to have urinary retention this admission and has an indwelling catheter which has not been placed. She can complete a voiding trial in 2 days at rehab, will discharge with catheter in place with follow-up to urology as needed. Patient was evaluated by orthopedics who fit her right ankle for a brace. 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 Continues with indwelling catheter will dc to rehab today with de jesus and can do a voiding trial in a few days. WBC today is 10 which is improved, will complete 3 more days of oral ceftin. Hemoglobin stable at 8.8. Also, patient did receive her ankle splint today and had significant pain with ambulation, will dc on a small dose of tramadol. Patient today is pleasant, alert x2. She denies any chest pain, chest pressure, cough or shortness of breath. Bowels are moving, tolerating diet. Lungs are clear, s1 s2 auscultated, focal neurological exam is negative, patient is at baseline mentation. +2 peripheral pulses noted. Labs today stable she is afebrile, blood pressure 132/77. Please see medication reconciliation for a list of current medication. Thank you for allowing us to participate in the care of this patient. The impression and plan of care has been dictated by Vesna Brown, Nurse Practitioner as directed. Dr. Brandon MD I have performed a history and physical examination and medical decision making of this patient, discussed the same with the dictator, and agree with the dictators assessment and plan as written, documented as a scribe. Based on total visit time, I have performed more than 50% of this visit. Patient Condition at Discharge: Stable Plan - Discharge Summary Discharge Rx Participant: No New Discharge Prescriptions: New QUEtiapine [SEROquel] 12.5 mg PO HS PRN #3 tab PRN Reason: Agitation traMADol HCl [Ultram] 25 mg PO Q6HR PRN #4 tab PRN Reason: Pain Cefuroxime Axetil [Ceftin] 500 mg PO BID 3 Days #6 tab Continue Vit C/E/Zn/Coppr/Lutein/Zeaxan [Preservision Areds 2 Softgel] 1 cap PO BID Iron 28mg 28 mg PO DAILY Calcium Carbonate 500 mg PO DAILY Furosemide [Lasix] 20 mg PO DAILY Cyanocobalamin (Vitamin B-12) [Vitamin B-12] 2,500 mcg PO DAILY Acetaminophen [Tylenol] 650 mg PO Q4H PRN PRN Reason: Fever And/ Or Pain Potassium Chloride [Klor-Con 20] 20 meq PO W/LUNCH lisinopriL 10 mg PO DAILY Metoprolol Tartrate [Lopressor] 12.5 mg PO BID Aspirin EC [Ecotrin Low Dose] 81 mg PO DAILY Discharge Medication List Acetaminophen [Tylenol] 650 mg PO Q4H PRN 04/30/21 [History] Aspirin EC [Ecotrin Low Dose] 81 mg PO DAILY 04/30/21 [History] Calcium Carbonate 500 mg PO DAILY 04/30/21 [History] Cyanocobalamin (Vitamin B-12) [Vitamin B-12] 2,500 mcg PO DAILY 04/30/21 [History] Furosemide [Lasix] 20 mg PO DAILY 04/30/21 [History] Iron 28mg 28 mg PO DAILY 04/30/21 [History] Metoprolol Tartrate [Lopressor] 12.5 mg PO BID 04/30/21 [History] Potassium Chloride [Klor-Con 20] 20 meq PO W/LUNCH 04/30/21 [History] Vit C/E/Zn/Coppr/Lutein/Zeaxan [Preservision Areds 2 Softgel] 1 cap PO BID 04/30/21 [History] lisinopriL 10 mg PO DAILY 04/30/21 [History] Cefuroxime Axetil [Ceftin] 500 mg PO BID 3 Days #6 tab 05/02/21 [Rx] QUEtiapine [SEROquel] 12.5 mg PO HS PRN #3 tab 05/02/21 [Rx] traMADol HCl [Ultram] 25 mg PO Q6HR PRN #4 tab 05/03/21 [Rx] Follow up Appointment(s)/Referral(s): Balaji Floyd DO [Doctor of Osteopathic Medicine] - 2 Weeks Brian Rizzo DO [Primary Care Provider] - 1-2 days Pineda Al MD [STAFF PHYSICIAN] - 1 Week Sara Milian [NON-STAFF] - (Please call Keerthi is you have questions about your ankle brace.) Ambulatory/Diagnostic Orders: Complete Blood Count w/diff [LAB.AMB] Time Frame: 2 Days, Location: None Selected Activity/Diet/Wound Care/Special Instructions: Orthopedic discharge instructions: 1. Utilize lace up ankle brace 2. Recommend good supportive shoe 3. Ice and elevate off 4. [facility] 2 weeks Patient can discharge with de jesus catheter and complete voiding trial in 2 days, follow up with urology outpatient. Patient will need ankle brace from [facility] Discharge Disposition: TRANSFER TO SNF/ECF
== END 2021-05-03 16:22 | DRG 640 ==
LOC: EC 12:43 → 4SSUR 17:36 → 5NMEDONC 05-01 22:42 → 4SSUR 05-01 22:43
PROVIDERS: ADMIT Hospitalist; ATTEND Hospitalist
DX: E86.0 Dehydration (principal); G93.41 Metabolic encephalopathy; Z68.43 Body mass index [BMI] 50.0-59.9, adult; E87.8 Other disorders of electrolyte and fluid balance, not elsewhere classified; I10 Essential (primary) hypertension; M81.0 Age-related osteoporosis without current pathological fracture; R29.6 Repeated falls; S93.401A Sprain of unspecified ligament of right ankle, initial encounter; X50.1XXA Overexertion from prolonged static or awkward postures, initial encounter; Z79.82 Long term (current) use of aspirin; Z79.899 Other long term (current) drug therapy; Z82.3 Family history of stroke; Z82.49 Family history of ischemic heart disease and other diseases of the circulatory system; Z90.710 Acquired absence of both cervix and uterus; Z95.2 Presence of prosthetic heart valve; Z86.010 Personal history of colon polyps; E66.9 Obesity, unspecified; Z20.822 Contact with and (suspected) exposure to COVID-19; F01.50 Vascular dementia, unspecified severity, without behavioral disturbance, psychotic disturbance, mood disturbance, and anxiety; M10.9 Gout, unspecified; Z88.0 Allergy status to penicillin; Z88.2 Allergy status to sulfonamides; Z82.0 Family history of epilepsy and other diseases of the nervous system; Z98.890 Other specified postprocedural states
CPT/HCPCS: 36415; 70450; 71046; 80048; 80053; 80306; 81001; 84484; 85025; 85610; 85730; 87086; 87635; 96361; 96365; 96375; 99285

== ENCOUNTER 2021-07-14 15:34 | Emergency (ER) | payer MEDICARE ==
[2021-07-14 16:00] VITALS: RESP 16; TEMP 97.9
--- NOTE | 2021-07-14 16:08 | ED ---
General Adult HPI - General Chief complaint: Altered Mental Status Stated complaint: Possible UTI Time Seen by Provider: 07/14/21 15:46 Source: patient, family, EMS Mode of arrival: EMS Limitations: altered mental status - History of Present Illness Initial comments: Dictation was produced using [employer] dictation software. please excuse any grammatical, word or spelling errors. Chief Complaint: 85-year-old female presents to the emergency department for bizarre behavior History of Present Illness: Patient is an 85-year-old female she has multiple comorbidities. History of present illness obtained from daughter. Daughter at the bedside reports that patient has been exhibited signs of bizarre behavior for the last 2-3 days. His R episodes were described by daughter as complaining that there is "zip lock bag full of water in the toilet,", "flipping the lights on and off at night" was putting items into the car along with the dog as if they were going on a trip". Patient has also been having difficulty feeding herself. At baseline patient usually requires minimal assistance. She has history of vascular dementia. Several months ago she had a similar episode were she was diagnosed vascular dementia and urinary tract infection. Patient takes Seroquel or these episodes of bizarre behaviors she was given a Seroquel half tab administered by daughter however patient's symptoms did not seem to improve. Odor reports that patient has foul-smelling urine. Patient denies any medical complaints at this time. Patient is an unreliable historian. The ROS documented in this emergency department record has been reviewed and confirmed by me. Those systems with pertinent positive or negative responses have been documented in the HPI. All other systems are other negative and/or noncontributory. PHYSICAL EXAM: General Impression: Alert and oriented x3/4, rambling speech, not in acute distress HEENT: Normocephalic atraumatic, extra-ocular movements intact, pupils equal and reactive to light bilaterally, mucous membranes moist. Cardiovascular: Heart regular rate and rhythm Chest: Able to complete full sentences, no retractions, no tachypnea Abdomen: abdomen soft, non-tender, non-distended, no organomegaly Musculoskeletal: Pulses present and equal in all extremities, no peripheral edema Motor: no focal deficits noted Neurological: CN II-XII grossly intact, no focal motor or sensory deficits noted Skin: Intact with no visualized rashes Psych: Normal affect and mood ED course: 85-year-old female presents emergency department for clinical presentation consistent with acute delirium. Vital signs upon arrival are within acceptable limits. Patient well-appearing at bedside. To evaluation obtained. CBC, coag panel is unremarkable. Metabolic panel is within acceptable limits lactic acidosis slightly elevated at 2.1. This likely reflects some mild dehydration. Urinalysis shows 7 white blood cells. There is concern for a very mild urinary tract infection. Patient given a dose of ceftriaxone. Disposition options were discussed with daughter and patient. Patient is very adamant about being discharged to go home. Daughter is agreeable with the plan. Return Precautions are discussed. Patient reevaluated bedside at 5:15 PM found to be in stable medical condition. She is well- appearing and is coherent at the bedside she does not show any signs of confusion. She provided with prescription for antibiotics. - Related Data Home Medications Medication Instructions Recorded Confirmed Acetaminophen [Tylenol] 650 mg PO Q4H PRN 04/30/21 04/30/21 Aspirin EC [Ecotrin Low Dose] 81 mg PO DAILY 04/30/21 04/30/21 Calcium Carbonate 500 mg PO DAILY 04/30/21 04/30/21 Cyanocobalamin (Vitamin B-12) 2,500 mcg PO DAILY 04/30/21 04/30/21 [Vitamin B-12] Furosemide [Lasix] 20 mg PO DAILY 04/30/21 04/30/21 Iron 28mg 28 mg PO DAILY 04/30/21 04/30/21 Metoprolol Tartrate [Lopressor] 12.5 mg PO BID 04/30/21 04/30/21 Potassium Chloride [Klor-Con 20] 20 meq PO W/LUNCH 04/30/21 04/30/21 Vit C/E/Zn/Coppr/Lutein/Zeaxan 1 cap PO BID 04/30/21 04/30/21 [Preservision Areds 2 Softgel] lisinopriL 10 mg PO DAILY 04/30/21 04/30/21 Previous Rx's Medication Instructions Recorded Cefuroxime Axetil [Ceftin] 500 mg PO BID 3 Days #6 tab 05/02/21 QUEtiapine [SEROquel] 12.5 mg PO HS PRN #3 tab 05/02/21 traMADol HCl [Ultram] 25 mg PO Q6HR PRN #4 tab 05/03/21 Cephalexin [Keflex] 500 mg PO Q6HR 5 Days #20 cap 07/14/21 Allergies Allergy/AdvReac Type Severity Reaction Status Date / Time Penicillins Allergy Itching Verified 04/30/21 14:24 All Over Sulfa (Sulfonamide Allergy Itching Verified 04/30/21 14:24 Antibiotics) All Over Review of Systems ROS Statement: Those systems with pertinent positive or pertinent negative responses have been documented in the HPI. ROS Other: All systems not noted in ROS Statement are negative. 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 Past Anesthesia/Blood Transfusion Reactions: No Reported Reaction Past Psychological History: Depression Smoking Status: Never smoker Past Alcohol Use History: None Reported Past Drug Use History: None Reported - Past Family History Father Family Medical History: CVA/TIA, Hypertension Mother Family Medical History: Dementia, Hypertension, Liver Disease, Vascular Disorder Additional Family Medical History / Comment(s): Hepatits from blood transfusion, abdominal aneurysm, gout, cholecystectomy General Exam Limitations: altered mental status Course Vital Signs 07/14/21 07/14/21 15:46 17:11 Temperature 97.9 F Pulse Rate 102 H 92 Respiratory 16 16 Rate Blood Pressure 134/88 167/78 O2 Sat by Pulse 98 98 Oximetry Medical Decision Making - Lab Data Result diagrams: 07/14/21 16:09 07/14/21 16:09 Lab Results 07/14/21 07/14/21 07/14/21 Range/Units 16:09 16:09 16:09 WBC 12.7 H (3.8-10.6) k/uL RBC 3.77 L (3.80-5.40) m/uL Hgb 11.0 L (11.4-16.0) gm/dL Hct 34.3 (34.0-46.0) % MCV 90.8 (80.0-100.0) fL MCH 29.1 (25.0-35.0) pg MCHC 32.1 (31.0-37.0) g/dL RDW 15.4 (11.5-15.5) % Plt Count 344 (150-450) k/uL MPV 7.9 Neutrophils % 81 % Lymphocytes % 11 % Monocytes % 6 % Eosinophils % 1 % Basophils % 1 % Neutrophils # 10.3 H (1.3-7.7) k/uL Lymphocytes # 1.3 (1.0-4.8) k/uL Monocytes # 0.7 (0-1.0) k/uL Eosinophils # 0.1 (0-0.7) k/uL Basophils # 0.1 (0-0.2) k/uL PT 10.1 (9.0-12.0) sec INR 0.9 (<1.2) APTT 22.6 (22.0-30.0) sec Sodium (137-145) mmol/L Potassium (3.5-5.1) mmol/L Chloride (98-107) mmol/L Carbon Dioxide (22-30) mmol/L Anion Gap mmol/L BUN (7-17) mg/dL Creatinine (0.52-1.04) mg/dL Est GFR (CKD-EPI)AfAm (>60 ml/min/1.73 sqM) Est GFR (CKD-EPI)NonAf (>60 ml/min/1.73 sqM) Glucose (74-99) mg/dL Plasma Lactic Acid [place] (0.7-2.0) mmol/L Calcium (8.4-10.2) mg/dL Magnesium (1.6-2.3) mg/dL Total Bilirubin (0.2-1.3) mg/dL AST (14-36) U/L ALT (4-34) U/L Alkaline Phosphatase (38-126) U/L Total Protein (6.3-8.2) g/dL Albumin (3.5-5.0) g/dL Urine Color Light Yellow Urine Appearance Cloudy H (Clear) Urine pH 5.5 (5.0-8.0) Ur Specific [place] 1.013 (1.001-1.035) Urine Protein Negative (Negative) Urine Glucose (UA) Negative (Negative) Urine Ketones Negative (Negative) Urine Blood Negative (Negative) Urine Nitrite Negative (Negative) Urine Bilirubin Negative (Negative) Urine Urobilinogen <2.0 (<2.0) mg/dL Ur Leukocyte Esterase Small H (Negative) Urine RBC 2 (0-5) /hpf Urine WBC 7 H (0-5) /hpf Ur Squamous Epith Cells 4 (0-4) /hpf Urine Bacteria Occasional H (None) /hpf Urine Mucus Rare H (None) /hpf 07/14/21 07/14/21 Range/Units 16:09 16:09 WBC (3.8-10.6) k/uL RBC (3.80-5.40) m/uL Hgb (11.4-16.0) gm/dL Hct (34.0-46.0) % MCV (80.0-100.0) fL MCH (25.0-35.0) pg MCHC (31.0-37.0) g/dL RDW (11.5-15.5) % Plt Count (150-450) k/uL MPV Neutrophils % % Lymphocytes % % Monocytes % % Eosinophils % % Basophils % % Neutrophils # (1.3-7.7) k/uL Lymphocytes # (1.0-4.8) k/uL Monocytes # (0-1.0) k/uL Eosinophils # (0-0.7) k/uL Basophils # (0-0.2) k/uL PT (9.0-12.0) sec INR (<1.2) APTT (22.0-30.0) sec Sodium 142 (137-145) mmol/L Potassium 4.2 (3.5-5.1) mmol/L Chloride 105 (98-107) mmol/L Carbon Dioxide 26 (22-30) mmol/L Anion Gap 11 mmol/L BUN 36 H (7-17) mg/dL Creatinine 1.03 (0.52-1.04) mg/dL Est GFR (CKD-EPI)AfAm 58 (>60 ml/min/1.73 sqM) Est GFR (CKD-EPI)NonAf 50 (>60 ml/min/1.73 sqM) Glucose 94 (74-99) mg/dL Plasma Lactic Acid [place] 2.1 H* (0.7-2.0) mmol/L Calcium 9.4 (8.4-10.2) mg/dL Magnesium 1.7 (1.6-2.3) mg/dL Total Bilirubin 0.2 (0.2-1.3) mg/dL AST 24 (14-36) U/L ALT 13 (4-34) U/L Alkaline Phosphatase 118 (38-126) U/L Total Protein 6.9 (6.3-8.2) g/dL Albumin 4.2 (3.5-5.0) g/dL Urine Color Urine Appearance (Clear) Urine pH (5.0-8.0) Ur Specific [place] (1.001-1.035) Urine Protein (Negative) Urine Glucose (UA) (Negative) Urine Ketones (Negative) Urine Blood (Negative) Urine Nitrite (Negative) Urine Bilirubin (Negative) Urine Urobilinogen (<2.0) mg/dL Ur Leukocyte Esterase (Negative) Urine RBC (0-5) /hpf Urine WBC (0-5) /hpf Ur Squamous Epith Cells (0-4) /hpf Urine Bacteria (None) /hpf Urine Mucus (None) /hpf Disposition Clinical Impression: Confusion Disposition: HOME SELF-CARE Condition: Fair Instructions (If sedation given, give patient instructions): Altered Mental Status (ED) Prescriptions: Cephalexin [Keflex] 500 mg PO Q6HR 5 Days #20 cap Is patient prescribed a controlled substance at d/c from ED?: No Referrals: Brian Rizzo DO [Primary Care Provider] - 1-2 days
[2021-07-14 16:31] LABS: Basophils # (A) 0.1 k/uL (0-0.2); Basophils % (A) 1 %; Eosinophils # (A) 0.1 k/uL (0-0.7); Eosinophils % (A) 1 %; HCT 34.3 % (34.0-46.0); Lymphocytes # (A) 1.3 k/uL (1.0-4.8); Lymphocytes % (A) 11 %; MCH 29.1 pg (25.0-35.0); MCHC 32.1 g/dL (31.0-37.0); MCV 90.8 fL (80.0-100.0); Mean Platelet Volume 7.9; Monocytes # (A) 0.7 k/uL (0-1.0); Monocytes % (A) 6 %; Neutrophils # (A) 10.3 k/uL (1.3-7.7); Neutrophils % (A) 81 %; Platelet Count 344 k/uL (150-450); RBC 3.77 m/uL (3.80-5.40); RDW 15.4 % (11.5-15.5); WBC 12.7 k/uL (3.8-10.6)
[2021-07-14 16:34] LABS: Appearance,Urine Cloudy (Clear); Bacteria,Urine Occasional /hpf; Bilirubin,Urine Negative (Negative); Blood,Urine Negative (Negative); Color,Urine Light Yellow; Glucose,Urine (UA) Negative (Negative); Ketones,Urine Negative (Negative); Leukocyte Esterase,Urine Small (Negative); Mucus,Urine Rare /hpf; Nitrite,Urine Negative (Negative); PH, Urine 5.5 (5.0-8.0); Protein,Urine Negative (Negative); RBC,Urine 2 /hpf (0-5); Specific Gravity,Urine 1.013 (1.001-1.035); Squamous Epithelial Cell,Urine 4 /hpf (0-4); Urobilinogen,Urine <2.0 mg/dL (<2.0); WBC,Urine 7 /hpf (0-5)
[2021-07-14 16:40] LABS: INR 0.9 (<1.2)
[2021-07-14 16:41] LABS: Partial Thromboplastin Time 22.6 sec (22.0-30.0); Prothrombin Time 10.1 sec (9.0-12.0)
[2021-07-14 16:42] LABS: Albumin 4.2 g/dL (3.5-5.0); Calcium 9.4 mg/dL (8.4-10.2); Magnesium 1.7 mg/dL (1.6-2.3); Potassium 4.2 mmol/L (3.5-5.1); Total Bilirubin 0.2 mg/dL (0.2-1.3); Total Protein 6.9 g/dL (6.3-8.2)
--- NOTE | 2021-07-14 16:45 | CT ---
EXAMINATION TYPE: CT brain wo con DATE OF EXAM: 07/14/2021 COMPARISON: 09/30/2021 HISTORY: AMS CT DLP: 1143.4 mGycm Automated exposure control for dose reduction was used. There is cerebral cortical atrophy. There is no mass effect or midline shift. No sign of intracranial hemorrhage. There is patchy hypodensity in the periventricular white matter. Calvarium is intact. IMPRESSION: Cerebral atrophy and chronic small vessel ischemia. No acute intracranial abnormality. No change.
[2021-07-14 17:12] VITALS: BP 167/78; PULSE 92
[2021-07-14] MEDS ORDERED: cefTRIAXone IN SWFI 1,000 MG/10 ML SYRINGE IVP STA (17:16)
== END 2021-07-14 18:15 | disposition home or self-care (01) ==
LOC: EC 15:34
DX: R41.0 Disorientation, unspecified (principal); E87.2 Acidosis; E86.0 Dehydration; I10 Essential (primary) hypertension; Z79.82 Long term (current) use of aspirin; Z88.0 Allergy status to penicillin; Z88.2 Allergy status to sulfonamides; Z95.2 Presence of prosthetic heart valve
CPT/HCPCS: 36415; 93005; 80053; 83605; 83735; 85025; 85610; 85730; 81001; 70450; 99285; 96374; J0696